=== PATIENT | male | born 1990 | race Two or more races ===

== ENCOUNTER 2023-04-30 21:49 | Emergency (ER) | payer MEDICAID ==
[~2023-04-30] VITALS: Ht 167.6 cm; Wt 70.0 kg
[2023-04-30 21:59] VITALS: TEMP 98.2
[2023-04-30 22:20] LABS: COVID AG,FIA SOURCE NASAL SWAB
[2023-04-30 22:47] LABS: INFLUENZA TYPE A NEGATIVE FOR TYPE A (NEGATIVE); INFLUENZA TYPE B NEGATIVE FOR TYPE B (NEGATIVE)
[2023-04-30 22:48] LABS: SARS-COV2 (COVID) ANTIGEN,FIA Negative (Negative)
[2023-05-01] MEDS ORDERED: IPRATROPIUM BROMIDE 0.5 MG/2.5 ML NEB SOLUTION NEB ONE (00:30)
[2023-05-01] MEDS ORDERED: ALBUTEROL SULFATE 2.5 MG/0.5 ML NEB SOLUTION NEB ONE (00:30)
[2023-05-01 00:48] VITALS: PULSE 61; RESP 18; O2SAT 98
[2023-05-01 00:58] VITALS: PULSE 68; RESP 18; O2SAT 100
[2023-05-01] MEDS ORDERED: ALBU18HF12 IH (01:38)
[2023-05-01] MEDS ORDERED: AZIT250T9 PO (01:38)
[2023-05-01] MEDS ORDERED: PRED-554 PO (01:38)
[2023-05-01 02:06] VITALS: BP 118/76; PULSE 71; RESP 16
== END 2023-05-01 02:20 | disposition home or self-care (01) ==
LOC: EMS 21:52
DX: J45.909 Unspecified asthma, uncomplicated (principal); Z20.822 Contact with and (suspected) exposure to COVID-19
CPT/HCPCS: 71045; 87804; 94640; 99284; J7613

== ENCOUNTER 2024-05-19 09:29 | Emergency (ER) | payer SELFPAY ==
[~2024-05-19] VITALS: Ht 170.2 cm; Wt 68.2 kg
[~2024-05-19 09:29] MED LIST: ALBU18HF12 IH; PRED-554 PO
[2024-05-19 09:44] VITALS: TEMP 99.3
[2024-05-19 10:13] LABS: COVID AG,FIA SOURCE NASAL SWAB
[2024-05-19 10:54] LABS: INFLUENZA TYPE A POSITIVE FOR TYPE A (NEGATIVE); INFLUENZA TYPE B NEGATIVE FOR TYPE B (NEGATIVE)
[2024-05-19 10:55] LABS: SARS-COV2 (COVID) ANTIGEN,FIA Negative (Negative)
[2024-05-19] MEDS ORDERED: OSEL75CA45 PO (12:57)
[2024-05-19 13:15] VITALS: BP 107/61; PULSE 80; RESP 18; O2SAT 98
== END 2024-05-19 13:36 | disposition home or self-care (01) ==
LOC: EMS 09:31
DX: J11.1 Influenza due to unidentified influenza virus with other respiratory manifestations (principal); Z79.52 Long term (current) use of systemic steroids; Z20.822 Contact with and (suspected) exposure to COVID-19
CPT/HCPCS: 87804; 99283